=== PATIENT | male | born 1955 | race Two or more races ===

== ENCOUNTER → 2024-04-16 | Day surgery (SDC) | payer MEDICAID ==
[2024-04-10 15:11] LABS: Urine Bacteria None Seen /hpf (None Seen)
[2024-04-10 15:16] LABS: Basophils # (auto) 0.1 10 ^3/uL (0-0.2); Basophils % (auto) 0.7 % (0.0-2.0); Eosinophils # (auto) 0.2 10 ^3/uL (0-0.8); Eosinophils % (auto) 2.9 % (0.0-7.0); Hematocrit 35.5 % (41.0-53.0); Hemoglobin 12.1 g/dL (13.5-17.5); Lymphocytes # (auto) 1.9 10 ^3/uL (0.4-5.4); Mean Corpuscular Hemoglobin 33.2 pg (28.0-32.0); Mean Corpuscular Volume 97.8 fL (80.0-100.0); Monocytes # (auto) 0.6 10 ^3/uL (0-1.3); Monocytes % (auto) 7.2 % (0.0-12.0); Neutrophils % (auto) 64.2 % (37.0-80.0); Nucleated Red Blood Cells % 0.1 %; Platelet Count (auto) 233 10^3/uL (140-450); Red Blood Cells 3.63 10^6/uL (4.5-5.90); Red Cell Distribution Width 15.9 % (11.8-14.3); White Blood Cell 7.8 10^3/uL (4.4-10.8)
[2024-04-10 15:19] LABS: Urine Blood Negative /uL (Negative); Urine Clarity Clear (Clear); Urine Color Yellow (Yellow); Urine Mucus FEW (None Seen); Urine Protein, UAD TRACE (Negative); Urine Specific Gravity 1.021 (1.001-1.035); Urine Urobilinogen Normal (Negative); Urine WBC <1 /hpf (0 - 3); Urine pH 5.5 (5.0-9.0)
[2024-04-10 15:34] LABS: INR 1.01 (0.9-1.15); Prothrombin Time 10.7 sec (9.3-11.8)
[2024-04-10 15:55] LABS: Alanine Aminotransferase 42 U/L (7-40); Alkaline Phosphatase 131 U/L (46-116); Anion Gap 8 (5-15); Aspartate Aminotransferase 40 U/L (13-40); BUN/Creatinine Ratio 16.7 (10.0-20.0); Blood Urea Nitrogen 23 mg/dL (9-23); Calcium 9.9 mg/dL (8.7-10.4); Carbon Dioxide 24 mmol/L (20-30); Chloride 108 mmol/L (98-107); Glucose 65 mg/dL (74-106); Potassium 4.4 mmol/L (3.5-5.1); Sodium 140 mmol/L (136-145)
[2024-04-10 15:56] LABS: Albumin 4.6 g/dL (3.2-4.8); Bilirubin, Total 0.6 mg/dL (0.2-1.0)
[~2024-04-16] VITALS: Ht 185.4 cm; Wt 108.4 kg
[~2024-04-16] MED LIST: ALLO300T2 PO; ASPI81CH59 PO; ATOR20TA PO; CHLO25TA2 PO; CHOL1TAB28 PO; ENAL1TAB48 PO; FLUT50SP; GLIP10TA21 PO; INSU100I49 SC; INSU100I64 SC; LACT10SO3 PO; METF-372 PO; PANT40TA2 PO; TAMS-35 PO; VER40T PO
[2024-04-16 07:38] VITALS: TEMP 97.2
[2024-04-16 08:43] VITALS: PULSE 66; RESP 23; O2SAT 9
[2024-04-16 09:15] VITALS: BP 116/64; PULSE 55; RESP 15; O2SAT 98
== END | disposition home or self-care (01) ==
LOC: GI 07:31
PROVIDERS: ATTEND Internal Medicine Gastroenterology
DX: R10.13 Epigastric pain (principal); K29.50 Unspecified chronic gastritis without bleeding; K21.9 Gastro-esophageal reflux disease without esophagitis; J45.909 Unspecified asthma, uncomplicated; I10 Essential (primary) hypertension; E11.9 Type 2 diabetes mellitus without complications; Z96.653 Presence of artificial knee joint, bilateral; Z98.890 Other specified postprocedural states; Z88.5 Allergy status to narcotic agent; Z88.6 Allergy status to analgesic agent; Z88.8 Allergy status to other drugs, medicaments and biological substances
CPT/HCPCS: 36415; 43239; 80053; 81001; 82962; 85025; 85610; 85730; 88305; 88312; 88342; J7030

== ENCOUNTER 2024-06-11 07:37 | Day surgery (SDC) | payer MEDICAID ==
[2024-06-08 12:10] LABS: Urine Bacteria None Seen /hpf (None Seen); Urine WBC None Seen /hpf (0 - 3)
[2024-06-08 12:41] LABS: Basophils # (auto) 0 10 ^3/uL (0-0.2); Basophils % (auto) 0.5 % (0.0-2.0); Eosinophils # (auto) 0.2 10 ^3/uL (0-0.8); Eosinophils % (auto) 2.8 % (0.0-7.0); Hematocrit 36.9 % (41.0-53.0); Hemoglobin 12.5 g/dL (13.5-17.5); Lymphocytes % (auto) 27.5 % (10.0-50.0); Mean Corpuscular Volume 96.8 fL (80.0-100.0); Monocytes # (auto) 0.4 10 ^3/uL (0-1.3); Monocytes % (auto) 5.5 % (0.0-12.0); Neutrophils # (auto) 4.6 10 ^3/uL (1.6-8.6); Neutrophils % (auto) 63.7 % (37.0-80.0); Platelet Count (auto) 222 10^3/uL (140-450); Red Blood Cells 3.81 10^6/uL (4.5-5.90); Red Cell Distribution Width 15.4 % (11.8-14.3); White Blood Cell 7.2 10^3/uL (4.4-10.8)
[2024-06-08 12:50] LABS: Urine Blood Negative /uL (Negative); Urine Clarity Clear (Clear); Urine Color Light-Yellow (Yellow); Urine Hyaline Cast FEW /lpf (0 - 2); Urine Mucus FEW (None Seen); Urine Protein, UAD Negative (Negative); Urine Specific Gravity 1.016 (1.001-1.035); Urine Urobilinogen Normal (Negative)
[2024-06-08 12:55] LABS: INR 1.01 (0.9-1.15); Partial Thromboplastin Time 24.8 SEC (24.5-34.5); Prothrombin Time 10.7 sec (9.3-11.8)
[2024-06-08 13:31] LABS: Alanine Aminotransferase 32 U/L (7-40); Albumin 4.4 g/dL (3.2-4.8); Alkaline Phosphatase 139 U/L (46-116); Anion Gap 8 (5-15); Aspartate Aminotransferase 24 U/L (13-40); BUN/Creatinine Ratio 15.7 (10.0-20.0); Blood Urea Nitrogen 22 mg/dL (9-23); Calcium 9.8 mg/dL (8.7-10.4); Carbon Dioxide 25 mmol/L (20-31); Chloride 104 mmol/L (98-107); Glucose 260 mg/dL (74-106); Potassium 4.7 mmol/L (3.5-5.1); Sodium 137 mmol/L (136-145)
[2024-06-08 13:32] LABS: Bilirubin, Total 0.5 mg/dL (0.2-1.0)
--- NOTE | 2024-06-11 09:10 | DVHHP2 ---
GI H&P Pre-Op Assessment Date: 06/11/24 Chief complaint: Blood in the stool and colon cancer screening HPI: per clinic note Past medical history: per clinic note Past surgical history: per clinic note Family history: per clinic note Physical exam: General: NAD, AAOX3 HEENT: PERRL, no scleral icterus, normal hearing, gums without lesions or bleeding, oropharynx clear without erythema or exudate. Neck: Supple without enlargement of the thyroid, or lymphadenopathy. Chest: Normal size and shape, no tenderness, lung murphy clear to auscultation and percussion, nonlabored breathing. Heart: RRR, no murmur Abdomen: non-distended, no tenderness to palpation, +BS, no hepatosplenomegaly Extremities: no edema Neurological: CN II-XII intact, sensation intact in all extremities, 5+ strength in all extremities Skin: No rashes, No jaundice Assessment: - blood in stool and colon cancer screening Plan: - Colonoscopy - Risks (bleeding, infection, perforation, reaction to sedation medications and cardiopulmonary arrest) and benefit of the procedure were explained to patient. Patient agrees to undergo the procedure. SKYLER WU MD Jun 11, 2024 09:10
[2024-06-11] MEDS ORDERED: LIDOCAINE 1% INJ PF 5ML AMP ONE (09:11)
[2024-06-11] MEDS ORDERED: PROPOFOL 10 MG/ML 20 ML IV ONE ×2 (09:11→09:18)
[2024-06-11 09:34] VITALS: PULSE 81; RESP 23; TEMP 99.4; O2SAT 97
--- NOTE | 2024-06-11 09:36 | DVHOP2 ---
Operative Report DATE OF OPERATION: 06/11/24 PROCEDURE: Colonoscopy. PREOPERATIVE INDICATION: The patient is a 68 -year-old male undergoing colonoscopy for colon cancer screening and blood in stool. POSTOPERATIVE DIAGNOSES: 1. 3 mm sessile polyp in the descending colon was removed with biopsy forceps. 2. A 2 mm rectosigmoid polyp was removed with biopsy forceps. 3. Internal hemorrhoids PROCEDURE PERFORMED BY: Kamlesh Neff M.D. SCOPE: Olympus videocolonoscope. ASA CLASS: 3 PREOPERATIVE MEDICATIONS: MAC with Francisco Javier COUNTER SERVER PROCEDURE IN DETAIL: After obtaining an informed consent, the patient was placed on left lateral decubitus position. He was then sedated with the above medications. A rectal examination was performed that was normal. The colonoscope was then passed through the anus into the rectosigmoid and through the descending, transverse, and ascending colon up to the cecum with visualization of the appendiceal orifice, base of the cecum and the ileocecal valve. A 3 mm sessile polyp in the descending colon was removed with biopsy forceps. A 2 mm rectosigmoid polyp was removed with biopsy forceps. There were internal hemorrhoids. The colonoscope was then withdrawn. The patient tolerated the procedure well without difficulty. WITHDRAWAL TIME: 11 minutes QUALITY OF THE PREP: [place] Bowel Prep score: 4 COMPLICATIONS : None SPECIMENS: Colon polyps DISPOSITION: D/C to home PLAN: 1. Repeat colonoscopy base on biopsy result. Even if the biopsy result is normal, patient will need repeat colonoscopy in five years for colon cancer screening due to suboptimal prep. KAMLESH NEFF MD Jun 11, 2024 09:36
--- NOTE | 2024-06-11 09:36 | DVHDS2 ---
Physician Discharge Progress N Final Diagnosis: Colon polyps, internal hemorrhoids Operations or Procedures: Operations or Procedures Colonoscopy with biopsy polypectomy. Condition on Discharge: Good Disposition: Home Discharge Instructions: Diet: Regular Activity: No Restrictions, As Tolerated Medications: Resume previous home medications Follow Up Care: Discharge Statement: "Patient was advised to return to the ER or call 911 if any headaches, dizziness, shortness of breath, chest pain, abdominal pain, bleeding, fevers, or worsening of medical condition. Patient was counseled about treatment plan, medications, possible side effects, patientverbalized understanding. All questions were answered to the best of my ability. This discharge took greater then 30 minutes in planning, reviewing documentation, counseling the patient, and discussing with other team members." SKYLER WU MD Jun 11, 2024 09:36
[2024-06-11 10:04] VITALS: BP 141/80; PULSE 76; RESP 21; O2SAT 94
== END 2024-06-11 10:28 | disposition home or self-care (01) ==
LOC: GI 07:37
PROVIDERS: ATTEND Internal Medicine Gastroenterology
DX: K92.1 Melena (principal); D12.4 Benign neoplasm of descending colon; K64.8 Other hemorrhoids; K59.00 Constipation, unspecified; K21.9 Gastro-esophageal reflux disease without esophagitis; I10 Essential (primary) hypertension; E11.9 Type 2 diabetes mellitus without complications; E78.5 Hyperlipidemia, unspecified; J45.909 Unspecified asthma, uncomplicated; N40.0 Benign prostatic hyperplasia without lower urinary tract symptoms; Z79.82 Long term (current) use of aspirin; Z79.4 Long term (current) use of insulin; Z79.891 Long term (current) use of opiate analgesic; Z79.899 Other long term (current) drug therapy; Z96.653 Presence of artificial knee joint, bilateral; Z98.890 Other specified postprocedural states; Z87.891 Personal history of nicotine dependence; Z88.5 Allergy status to narcotic agent
CPT/HCPCS: 36415; 45380; 80053; 81001; 82962; 85025; 85610; 85730; 88305; J2704; J7030